=== PATIENT | male | born 1990 | race African-American/Black ===

== ENCOUNTER 2016-07-02 18:39 | Emergency (ER) | payer SELFPAY ==
[~2016-07-02] VITALS: Ht 170.2 cm; Wt 90.4 kg
[~2016-07-02 18:39] MED LIST: DOXYCYCLINE HY100 MG PO; NAPROSYN500 MG PO; TRAMADOL HCL50 MG PO
[2016-07-02 20:52] VITALS: BP 138/87
== END 2016-07-02 20:58 | disposition home or self-care (01) ==
LOC: EME 18:39
DX: S61.411A Laceration without foreign body of right hand, initial encounter (principal); W21.81XA Striking against or struck by football helmet, initial encounter; Y93.61 Activity, american tackle football
CPT/HCPCS: 99281; 99284; S0020

== ENCOUNTER 2016-07-12 13:09 | Emergency (ER) | payer SELFPAY ==
[~2016-07-12] VITALS: Ht 170.2 cm; Wt 89.7 kg
[2016-07-12 13:11] VITALS: BP 120/55
== END 2016-07-12 14:45 | disposition home or self-care (01) ==
LOC: EME 13:09
DX: Z48.02 Encounter for removal of sutures (principal); Z53.21 Procedure and treatment not carried out due to patient leaving prior to being seen by health care provider

== ENCOUNTER 2016-07-13 11:31 | Emergency (ER) | payer SELFPAY ==
[~2016-07-13] VITALS: Ht 170.2 cm; Wt 89.0 kg
[2016-07-13 12:02] VITALS: BP 130/80
== END 2016-07-13 12:03 | disposition home or self-care (01) ==
LOC: EME 11:31
DX: Z48.02 Encounter for removal of sutures (principal)
CPT/HCPCS: 99281; 99284